=== PATIENT | female | born 1975 | race Caucasian/White ===

== ENCOUNTER 2018-10-01 20:25 | Emergency (ER) | payer MEDICAID ==
[2018-10-02] MEDS: DIPHENHYDRAMINE 25 MG CAP PO (01:05)
[2018-10-02] MEDS: HYDROCODONE/APAP (5/325) TAB PO (01:05)
[2018-10-02] MEDS: METOCLOPRAMIDE 10 MG TAB PO (01:05)
== END 2018-10-02 03:08 | disposition home or self-care (01) ==
LOC: FTE 20:25
DX: J32.9 Chronic sinusitis, unspecified (principal); J45.909 Unspecified asthma, uncomplicated; G43.909 Migraine, unspecified, not intractable, without status migrainosus
CPT/HCPCS: 99283; Z7610